=== PATIENT | male | born 1950 | race Caucasian/White ===

== ENCOUNTER 2017-06-12 20:32 | Emergency (ER) | payer OTHER, BC ==
[2017-06-12 20:40] VITALS: BP 129/85
== END 2017-06-12 22:33 | disposition home or self-care (01) ==
LOC: ED 20:32
DX: Z88.5 Allergy status to narcotic agent (principal); M62.830 Muscle spasm of back; N40.0 Benign prostatic hyperplasia without lower urinary tract symptoms; K21.9 Gastro-esophageal reflux disease without esophagitis; Z90.89 Acquired absence of other organs; S16.1XXA Strain of muscle, fascia and tendon at neck level, initial encounter; V49.40XA Driver injured in collision with unspecified motor vehicles in traffic accident, initial encounter; Y93.I9 Activity, other involving external motion; Y99.8 Other external cause status; Y92.410 Unspecified street and highway as the place of occurrence of the external cause
CPT/HCPCS: J1885

== ENCOUNTER 2019-03-05 11:59 | Inpatient (IN) | payer OTHER, BC ==
[~2019-03-05] VITALS: Ht 172.7 cm; Wt 98.1 kg
--- NOTE | 2019-03-05 12:09 | NUR ---
AMBULATED TO TX AREA.
--- NOTE | 2019-03-05 12:10 | NUR ---
PT C/O RT LOWER LEG PAIN, SWELLING, REDNESS, & ITCHING SINCE YESTERDAY. [place]OUGH TUESDAY MORNING. PT WAS RIDING SEA-DOOS & RECALLS SLIPPING ON EDGE OF ONE ON TUESDAY, & ALSO RECALLS SEEING A SPIDER IN TENT BUT YESTERDAY BUT DOES NOT RECALL BEING BITTEN. MEASURED RT CALF=44 CM, LT CALF=43 CM MEASURED RT ANKLE=27.5 CM, LT ANKLE=26.5 CM REDNESS IS MOSTLY MEDIAL FROM ANKLE TO NEARLY KNEE LEVEL. PHOTOS TAKEN ANTERIOR VIEW LOWER LEGS & POSTERIOR VIEW LOWER LEGS. ON TUESDAY PT STARTED W/ CHILLS, DIARRHEA, NAUSEA, & FATIGUE. "LIKE THE FLU." PT STATED INSIDE LAYING DOWN "I WAS TOTALLY EXHAUSTED."
--- NOTE | 2019-03-05 12:22 | NUR ---
MSE BY DR. BULL.
[2019-03-05 12:52] LABS: BASOPHIL % 0.3 % (0-2)
[2019-03-05 13:02] LABS: CALCIUM 8.1 mg/dL (8.5-10.1); CARBON DIOXIDE 28.8 mmol/L (21-32); CHLORIDE SERUM 107 mmol/L (98-107); CREATININE SERUM 1.1 mg/dL (0.7-1.3); GFR1 > 60 mL/min; GLUCOSE SERUM 96 mg/dL (74-106); POTASSIUM SERUM 3.7 mmol/L (3.5-5.1); SODIUM SERUM 143 mmol/L (136-145)
--- NOTE | 2019-03-05 13:02 | NUR ---
BLOOD CULTURES HAVE BEEN DRAWN. IV FLUID & IV ANTIBIOTICS BEGUN ORDERED.
--- NOTE | 2019-03-05 13:05 | NUR ---
PT INSTRUCTED ON NEED FOR URINE SPECIMEN & GIVEN URINAL/SPECIMEN CUP.
[2019-03-05 13:07] LABS: ALKALINE PHOSPHATASE 85 U/L (46-116); ALT/SGPT 58 U/L (16-63); AST/SGOT 47 U/L (15-37); BILIRUBIN TOTAL 2.2 mg/dL (0.20-1.00); TOTAL PROTEIN, SERUM 6.5 g/dL (6.4-8.2)
--- NOTE | 2019-03-05 13:15 | NUR ---
EKG WAS DONE BY EMT.
[2019-03-05 13:19] LABS: PLATELET COUNT 78 x10^3mcL (130-400); RED CELL DISTRIBUTION WIDTH 15.6 % (11.5-14.5)
--- NOTE | 2019-03-05 13:35 | NUR ---
BEDSIDE ULTRASOUND BEGUN.
--- NOTE | 2019-03-05 14:15 | NUR ---
BEDSIDE ULTRASOUND COMPLETED.
--- NOTE | 2019-03-05 14:34 | NUR ---
URINE DIP DONE, URINE TO LAB.
[2019-03-05 14:38] LABS: microscopic required? NO
[2019-03-05 14:47] LABS: UA SPECIFIC GRAVITY 1.015 (1.005-1.035); urine erythrocyte NEGATIVE (NEGATIVE)
[2019-03-05] MEDS ORDERED: FLO4 PO (14:55)
[2019-03-05] MEDS ORDERED: PANTOPRAZOLE SO20 M1 PO (14:55)
--- NOTE | 2019-03-05 14:57 | NUR ---
CALLED [facility] IN [facility] TO COMPLETE PT'S MED REC.
--- NOTE | 2019-03-05 16:00 | NUR ---
RESIDENT DR. MONIQUE DONE TALKING TO PT.
--- NOTE | 2019-03-05 16:06 | NUR ---
REPORT CALLED TO RYNE ON TELE.
--- NOTE | 2019-03-05 16:06 | NUR ---
REPORT CALLED TO RYNE ON MED-SURG.
--- NOTE | 2019-03-05 16:30 | NUR ---
RECEIVED PT FROM ED VIA [employer], CAME IN DUE TO RLE PAIN AND SWELLING, STATED THAT HE SCRAPED HIS LEG 2 DAYS AGO. AAOX4. DENIES HEADACHE/DIZZINESS. NO SOB NOTED, LUNG SOUNDS CTA. DENIES CHEST PAIN/PRESSURE. STATED THAT HE ONLY HAD 1 EPISODE OF DIARRHEA TODAY. DENIES ABDOMINAL PAIN/NAUSEA/VOMITING. ABDOMEN IS SOFT. MILD JAUNDICE NOTED. W/ RLE SWELLING. DENIES TINGLING SENSATION/NUMBNESS. IV SITE PATENT AND INTACT. SIDE RAILS UPX2. CALL LIGHT ON REACH. ENDORSED TO PRIMARY NURSE RYNE FOR CONTINUITY OF CARE
[2019-03-05 16:41] VITALS: BP 130/57
[2019-03-05 16:46] VITALS: Ht 172.7 cm; Wt 98.1 kg
--- NOTE | 2019-03-05 17:00 | NUR ---
RECEIVED FR. GARRIDO RESOURCE NURSE.AAO X4.DENIES ANY PAIN/DISCOMFORT AT THE MOMENT.LUNGS CLEAR.PT NON-TELE.IV SALINE LOCKED.RLE WITH REDNESS AND +1 EDEMA.CALL LIGHT WITHIN REACH.INSTRUCTED TO CALL FOR ANY PAIN/DISCOMFORT.WILL CONTINUE TO MONITOR PT
[2019-03-05 17:13] LABS: MAGNESIUM 1.8 mg/dL (1.8-2.4); PHOSPHOROUS 2.5 mg/dL (2.5-4.9)
--- NOTE | 2019-03-05 18:23 | NUR ---
NO SIGNIFICANT CHANGE NOTED.WILL ENDORSE TO NEXT SHIFT.
--- NOTE | 2019-03-05 19:33 | NUR ---
PT RECIEVED FROM THE DAY SHIFT RN. PT IS ALERT AND ORIENTED X1, CALM AND COOPERATIVE WITH CARE, PT HAS NO COMPLAINT OF PAIN AT THIS TIME. SAFETY AND COMFORT MEASURES MAINTAINED, BED IN LOWEST POSITION, CALL LIGHT WITHIN REACH, WILL CONTINUE TO MONITOR AT THIS TIME.
--- NOTE | 2019-03-06 00:15 | NUR ---
PT IS RESTING IN BED WITH EYES CLOSED. NO ACUTE DISTRESS NOTED. IV INFUSING CLEOCIN AT THIS TIME. NO S/S OF PAIN NOTED. SAFETY AND COMFORT MEASURES MAINTAINED, BED IN LOWEST POSITION, CALL LIGHT WITHIN REACH. WILL CONTINUE TO MONITOR AT THIS TIME.
--- NOTE | 2019-03-06 01:49 | NUR ---
PT IS RESTING IN BED WITH EYES CLOSED AT THIS TIME. NO ACUTE DISTRESS NOTED, NO COMPLAINT OF PAIN AT THIS TIME. SAFETY AND COMFORT MEASURES MAINTAINED, BED IN LOWEST POSITION, CALL LIGHT WITHIN REACH. WILL CONTINUE TO MONITOR AT THIS TIME.
--- NOTE | 2019-03-06 05:09 | NUR ---
PT HAS RESTED IN LONG INTERVALS THROUGHOUT THE SHIFT. NO ACUTE DISTRESS NOTED. NO COMPLAINT OF PAIN AT THIS TIME. PT HAS BEEN ALERT AND ORIENTED X4, CALM AND COOPERATIVE WITH CARE. IV SALINE LOCKED AND INTACT, SAFETY AND COMFORT MEASURES MAINTAINED, BED IN LOWEST POSITION, CALL LIGHT WITHIN REACH. WILL ENDORSE CONTINUITY OF CARE TO THE ONCOMING RN.
[2019-03-06 05:21] VITALS: BP 122/69
--- NOTE | 2019-03-06 07:25 | NUR ---
AAO X4.DENIES ANY PAIN/DISCOMFORT.LUNGS CLEAR.PT NONE TELE.IV SALINE LOCKED.RLE WITH ERRYTHEMA AND TRACE EDEMA.CALL LIGHT WITHIN REACH.INSTRUCTED TO CALL FOR ANY PAIN/DISCOMFORT.WILL CONTINUE TO MONITOR PT.
[2019-03-06 09:19] VITALS: BP 112/63
[2019-03-06] MEDS ORDERED: CLINDAMYCIN HC300 MG PO (10:48)
[2019-03-06 14:51] VITALS: BP 112/63
--- NOTE | 2019-03-06 15:13 | NUR ---
PT D/C TO HOME IV D/C'D.RX AND D/C INSTRUCTION GIVEN.PT VERBALIZES UNDERSTANDING.WENT DOWN VIA WHEELCHAIR ACCOMPANIED BY THROUGH OPERATOR.
== END 2019-03-06 15:16 | disposition home or self-care (01) | DRG 603 ==
LOC: ED 11:59 → MU 15:33
PROVIDERS: Emergency Medicine; ADMIT Internal Medicine
DX: L03.115 Cellulitis of right lower limb (principal); S80.11XA Contusion of right lower leg, initial encounter; E83.51 Hypocalcemia; K74.60 Unspecified cirrhosis of liver; K21.9 Gastro-esophageal reflux disease without esophagitis; N40.0 Benign prostatic hyperplasia without lower urinary tract symptoms; Z68.32 Body mass index [BMI] 32.0-32.9, adult; W22.8XXA Striking against or struck by other objects, initial encounter; Y93.19 Activity, other involving water and watercraft; Y92.828 Other wilderness area as the place of occurrence of the external cause; Y99.8 Other external cause status
CPT/HCPCS: G0378; J2543; J3490; J7030; J7040; J7060; Q0092